=== PATIENT | male | born 1965 | race African-American/Black ===

== ENCOUNTER 2017-12-20 15:18 | Inpatient (IN) ==
[2017-12-20] MEDS ORDERED: methylPREDNISolone SOD SUC 125 MG/2 ML VIAL ONE (16:46)
[2017-12-20] MEDS ORDERED: FAMOTIDINE 20 MG/2 ML VIAL IV STA (16:50)
[2017-12-20] MEDS ORDERED: diphenhydrAMINE 50 MG/1 ML VIAL IV STA (16:50)
[2017-12-20] MEDS ORDERED: methylPREDNISolone SOD SUC 125 MG/2 ML VIAL IV STA (16:50)
[2017-12-20] MEDS ORDERED: SODIUM CHLORIDE 0.9% 1,000 ML IV PRN (16:50)
[2017-12-20] MEDS ORDERED: EPINEPHrine 1 MG/ML VIAL SUBCUT STA (16:50)
[2017-12-20] MEDS ORDERED: EPINEPHrine 1 MG/10 ML SYRINGE ONE (16:53)
[2017-12-20] MEDS ORDERED: FAMOTIDINE 20 MG/2 ML VIAL IV ONE (16:54)
[2017-12-20 17:00] LABS: Basophils % 0.3 % (0.0-0.8); Eosinophils # 0.7 10*3/uL (0.0-0.87); Eosinophils % 6.5 % (0.00-10.9); Hematocrit 40.3 VOL% (42.0-52.0); Hemoglobin 13.4 GM/DL (14.0-18.0); Immature Granulocytes % 0.4 %; Immature Granulocytes Absolute 0.04 #; Lymphocytes # 2.1 10*3/uL (1.4-4.0); Lymphocytes % 19.1 % (21.2-54.2); Mean Corpuscular HGB Conc 33.3 GM/DL (32-36); Mean Corpuscular Hemoglobin 32 PG (27-34); Mean Corpuscular Volume 95.3 FL (87-102); Mean Platelet Volume 12.3 FL (9.6-12.0); Monocytes # 0.7 10*3/uL (0.11-0.8); Monocytes % 6.5 % (1.7-12.7); Neutrophils # 7.5 10*3/uL (1.4-7.4); Neutrophils % 67.2 % (38.7-73.9); Platelet Count 206 T/CUMM (130-400); Red Blood Count 4.23 MC/CUMM (3.8-5.5); Red Cell Distribution Width 12.6 % (9.3-17.3); White Blood Count 11.1 T/CUMM (4-12)
[2017-12-20] MEDS ORDERED: hydrALAZINE 20 MG/1 ML VIAL IV STA (17:12)
[2017-12-20] MEDS ORDERED: FUROSEMIDE 20 MG/2 ML VIAL IV STA (17:12)
[2017-12-20 17:16] LABS: Alanine Aminotransferase 18 U/L (16-61); Alkaline Phosphatase 117 U/L (45-117); Aspartate Amino Transferase 15 U/L (0-37); Bilirubin,Total < 0.39 MG/DL (0.2-1.0); Blood Urea Nitrogen 16 MG/DL (7-18); Calcium 8.1 MG/DL (8.5-10.1); Glucose 268 MG/DL (74-106); Osmolality,Calculated 282.8 MOS/KG (273-304); Potassium 3.9 MMOL/L (3.5-5.1); Sodium 137 MMOL/L (136-145); Total Protein 6.7 G/DL (6.4-8.3)
[2017-12-20] MEDS ORDERED: ALBUTEROL 2.5 MG/3 ML NEB RESP TX PRN (18:06)
[2017-12-20] MEDS ORDERED: DEXTROSE 50% 25 GM/50 ML VIAL IV PRN (18:15)
[2017-12-20] MEDS ORDERED: GLUCAGON 1 MG VIAL IM PRN (18:15)
[2017-12-20] MEDS ORDERED: hydrALAZINE 20 MG/1 ML VIAL IV PRN (18:18)
[2017-12-20] MEDS ORDERED: ENOXAPARIN 40 MG/0.4 ML SYRINGE SUBCUT SCH (21:00)
[2017-12-20] MEDS: INSULIN LISPRO 100 UNIT/ML SUBCUT SCH (21:53)
[2017-12-21] MEDS: methylPREDNISolone SOD SUC 125 MG/2 ML VIAL IV SCH ×2 (00:40→05:57)
[2017-12-21 03:20] LABS: Basophils % 0.2 % (0.0-0.8); Eosinophils # 0.1 10*3/uL (0.0-0.87); Eosinophils % 0.6 % (0.00-10.9); Hematocrit 41.1 VOL% (42.0-52.0); Immature Granulocytes % 0.4 %; Immature Granulocytes Absolute 0.05 #; Lymphocytes # 1.2 10*3/uL (1.4-4.0); Lymphocytes % 10.3 % (21.2-54.2); Mean Corpuscular HGB Conc 31.6 GM/DL (32-36); Mean Corpuscular Hemoglobin 30 PG (27-34); Mean Corpuscular Volume 94.9 FL (87-102); Mean Platelet Volume 12.4 FL (9.6-12.0); Monocytes # 0.1 10*3/uL (0.11-0.8); Monocytes % 0.5 % (1.7-12.7); Neutrophils # 10.3 10*3/uL (1.4-7.4); Platelet Count 219 T/CUMM (130-400); Red Blood Count 4.33 MC/CUMM (3.8-5.5); Red Cell Distribution Width 12.5 % (9.3-17.3); White Blood Count 11.7 T/CUMM (4-12)
[2017-12-21 03:57] LABS: Calcium 8.8 MG/DL (8.5-10.1); Potassium 4.6 MMOL/L (3.5-5.1)
[2017-12-21] MEDS ORDERED: FAMOTIDINE INJ 40 MG in SODIUM CHLORIDE 0.9% 100 ML IV SCH (06:00)
[2017-12-21] MEDS ORDERED: INSULIN LISPRO 100 UNIT/ML SUBCUT SCH (07:30)
[2017-12-21] MEDS: INSULIN LISPRO 100 UNIT/ML SUBCUT SCH (07:50)
[2017-12-21] MEDS ORDERED: amLODIPine 10 MG TABLET PO SCH (09:00)
[2017-12-21] MEDS ORDERED: INSULIN GLARGINE 100 UNIT/ML SUBCUT SCH (09:00)
[2017-12-21] MEDS ORDERED: SIMVASTATIN 20 MG TABLET PO SCH (09:00)
[2017-12-21 10:39] VITALS: BP 151/86
[2017-12-21] MEDS ORDERED: NON-FORMULARY MEDICATION (Exenatide Microspheres [Bydureon Pen] 2 MG) SUBCUT SCH (18:16)
== END 2017-12-21 10:20 | disposition home or self-care (01) | DRG 916 ==
LOC: N.ED 15:18 → SUATTDRO 18:06 → N.EDINP 18:06 → N.ICU 19:04
PROVIDERS: ADMIT Internal Medicine; ATTEND Internal Medicine